=== PATIENT | female | born 1980 | race Caucasian/White ===

== ENCOUNTER 2020-02-06 13:46 | Emergency (ER) | payer MEDICAID ==
[~2020-02-06] VITALS: Ht 160 cm; Wt 72.7 kg
[2020-02-06 13:52] VITALS: BP 111/80
[2020-02-06] MEDS ORDERED: NAPROXEN 500 MG TABLET PO ONE (14:15)
[2020-02-06] MEDS ORDERED: HYDROcodone/APAP 5/325MG 1 TAB TABLET PO ONE (14:15)
--- NOTE | 2020-02-06 14:17 | PHYS DOC ---
Adult General Chief Complaint Chief Complaint: MECHANICAL FALL HPI HPI Patient is a 40-year-old female patient presenting to the ED today with moderate pain on the left shoulder as well as low back that began a couple minutes ago after falling, patient states she was moving stuff out of a [employer] when she fell. Denies any loss of consciousness. Denies hitting her head on the ground. Describes the pain as sharp and constant worse on range of motion. Denies anything relieving her pain. Patient denies any pain radiating to bilateral lower extremities. Denies any loss of bowel/bladder function Review of Systems Review of Systems Constitutional: Denies fever or chills [] : Denies dysuria or hematuria [] Musculoskeletal: Reports left shoulder pain and low back pain Integument: Denies rash or skin lesions [] Neurologic: Denies headache, focal weakness or sensory changes [] All other systems were reviewed and found to be within normal limits, except as documented in this note. Current Medications Current Medications Current Medications Medications (Trade) Dose Ordered Sig/Liana Start Time Stop Time Status Last Admin Dose Admin Acetaminophen/ Hydrocodone Bitart (Lortab 5/325) 1 tab 1X ONCE 02/06/20 14:15 02/06/20 14:16 UNV Naproxen (Naprosyn) 500 mg 1X ONCE 02/06/20 14:15 02/06/20 14:16 UNV Physical Exam Physical Exam Constitutional: Well developed, well nourished, no acute distress, non-toxic appearance. [] Abdomen: Bowel sounds normal, soft, no tenderness, no masses, no pulsatile masses. [] Skin: Warm, dry, no erythema, no rash. [] Back: Diffuse paraspinal muscle tenderness bilateral lumbar spine, no midline lumbar spine tenderness, no CVA tenderness. [] Extremities: Left shoulder with no obvious deformity, full range of motion to the right shoulder as well as left upper extremity. Adequate radial, medial, ulnar sensation to the left upper extremity. +2 left radial pulse. Cap refill less than 2 seconds to left fingers. Neurologic: Alert and oriented X 3, normal motor function, normal sensory function, no focal deficits noted. [] Psychologic: Affect normal, judgement normal, mood normal. [] EKG EKG [] Radiology/Procedures Radiology/Procedures []PROCEDURE: SHOULDER 2+V LEFT XR SHOULDER_LEFT 2+ VIEWS DATE: 02/06/2020 2:05 PM INDICATION: Reason: fall pain / Spl. Instructions: / History: COMPARISON: None. FINDINGS: Bones: There is no evidence of acute fracture or dislocation. Joints: The joint spaces are normal. The acromiohumeral distance is not narrowed. Miscellaneous: Calcification adjacent to the posterolateral humeral head IMPRESSION: 1. No evidence of acute fracture. 2. Calcification adjacent to the posterolateral humeral head, likely calcific tendinosis. Electronically signed by: Kike Matthews MD (02/06/2020 2:23 PM) [id number] DICTATED AND SIGNED BY: KIKE MATTHEWS MD DATE: 02/06/20 1421 CC: EMERGENCY,DEPARTMENT; ALYSIA CHAVEZ APRN; PCP,NO ~MTH0 0 PROCEDURE: LUMBAR SPINE 2-3V XR LUMBAR SPINE 2-3V DATE: 02/06/2020 2:05 PM INDICATION: Reason: fall pain / Spl. Instructions: / History: COMPARISON: None. FINDINGS: Five non-rib bearing lumbar-type vertebral bodies are present. Bones/Alignment: No evidence of acute compression fracture. There is no listhesis. Joints: There is no disc space loss. Miscellaneous: Cholecystectomy clips. IMPRESSION: No evidence of acute compression fracture. Electronically signed by: Kike Matthews MD (02/06/2020 2:23 PM) [id number] DICTATED AND SIGNED BY: KIKE MATTHEWS MD DATE: 02/06/20 1423 CC: EMERGENCY,DEPARTMENT; ALYSIA CHAVEZ APRN; PCP,NO ~MTH0 0 Heart Score Risk Factors: Risk Factors: DM, Current or recent (<one month) smoker, HTN, HLP, family history of CAD, obesity. Risk Scores: Risk Factors: DM, Current or recent (<one month) smoker, HTN, HLP, family history of CAD, obesity. Course & Med Decision Making Course & Med Decision Making Pertinent Labs and Imaging studies reviewed. (See chart for details) This is a 40-year-old female patient presented to the ED today with low back pain status post falling, also complaining of left shoulder pain. No cauda equina syndrome symptoms. X-ray of the lumbar spine and left shoulder interpreted by radiologist are nega tive for any acute findings. Discharge to home. Follow-up with PCP in 1 to 2 weeks. You Disclaimer You Disclaimer This electronic medical record was generated, in whole or in part, using a voice recognition dictation system. Departure Departure: Impression: Primary Impression: Fall Additional Impressions: Left shoulder pain Low back pain Left shoulder tendinitis Disposition: 01 DC HOME SELF CARE/HOMELESS Condition: STABLE Referrals: PCP,NO (PCP) Follow-up with your own doctor in 1-2 Patient Instructions: Back Pain, Adult, Calcific Tendinitis, Fall Prevention and Home Safety Additional Instructions: You were evaluated in the emergency room for left shoulder pain and low back pain after falling. Your left shoulder x-rays are negative for any acute findings, noted for tendinitis. Your low back x-rays are negative for any acute findings. Take the prescribed medications as directed. Follow-up with your doctor next week Scripts Naproxen (NAPROXEN) 500 Mg Tablet 1 TAB PO BID for pain, #20 TAB 0 Refills Prov: ALYSIA CHAVEZ LOG SNAKER 02/06/20 Cyclobenzaprine Hcl (CYCLOBENZAPRINE HCL) 10 Mg Tablet 1 TAB PO TID, #30 TAB Prov: MUTALYSIA CRUZ LOG SNAKER 02/06/20 Methylprednisolone (MEDROL) 4 Mg Tab.ds.pk 1 PKG PO UD, #1 PKG Prov: ALYSIA CHAVEZ LOG SNAKER 02/06/20 Problem Qualifiers Primary Impression: Fall Encounter type: initial encounter Qualified Codes: W19.XXXA - Unspecified fall, initial encounter Additional Impressions: Left shoulder pain Chronicity: acute Qualified Codes: M25.512 - Pain in left shoulder Low back pain Chronicity: acute Back pain laterality: bilateral Sciatica presence: without sciatica Qualified Codes: M54.5 - Low back pain ALYSIA CHAVEZ LOG SNAKER Feb 06, 2020 14:16
--- NOTE | 2020-02-06 14:25 | RAD ---
XR SHOULDER_LEFT 2+ VIEWS DATE: 02/06/2020 2:05 PM INDICATION: Reason: fall pain / Spl. Instructions: / History: COMPARISON: None. FINDINGS: Bones: There is no evidence of acute fracture or dislocation. Joints: The joint spaces are normal. The acromiohumeral distance is not narrowed. Miscellaneous: Calcification adjacent to the posterolateral humeral head IMPRESSION: 1. No evidence of acute fracture. 2. Calcification adjacent to the posterolateral humeral head, likely calcific tendinosis. Electronically signed by: Gurjit Freeman MD (02/06/2020 2:23 PM) [id number]
--- NOTE | 2020-02-06 14:26 | RAD ---
XR LUMBAR SPINE 2-3V DATE: 02/06/2020 2:05 PM INDICATION: Reason: fall pain / Spl. Instructions: / History: COMPARISON: None. FINDINGS: Five non-rib bearing lumbar-type vertebral bodies are present. Bones/Alignment: No evidence of acute compression fracture. There is no listhesis. Joints: There is no disc space loss. Miscellaneous: Cholecystectomy clips. IMPRESSION: No evidence of acute compression fracture. Electronically signed by: Gurjit Freeman MD (02/06/2020 2:23 PM) [id number]
[2020-02-06] MEDS ORDERED: NAPR-514 PO (14:45)
[2020-02-06] MEDS ORDERED: CYCL-331 PO (14:45)
[2020-02-06] MEDS ORDERED: METH4TAB2 PO (14:45)
== END 2020-02-06 14:56 | disposition home or self-care (01) ==
LOC: ER 13:46
DX: M77.8 Other enthesopathies, not elsewhere classified (principal); M54.5 Low back pain; M25.512 Pain in left shoulder; W18.39XA Other fall on same level, initial encounter; Y93.89 Activity, other specified; Y92.89 Other specified places as the place of occurrence of the external cause; Y99.8 Other external cause status
CPT/HCPCS: 72100; 73030; 99284